=== PATIENT | female | born 1940 | race Caucasian/White ===

== ENCOUNTER → 2017-01-07 | Outpatient (CLI) | payer OTHER ==
[~2017-01-07] MED LIST: ACETAMINOPHEN PO; B-COMPLEX-VITA1 EACH SL; CALCIUM 500 +1 EAC2 PO; CEFDINIR300 M1 PO; COD LIVER OIL473 ML PO; ENFOLAST TABLE1 EACH PO; FISH OIL 1,001000 MG PO; FOLIC ACID1 MG PO; FOLIC ACID800 MCG DOB; HUMIRA20 MG/0.1; HYDROCODON-ACE1 EAC1 PO; METHOTREXATE2.5 MG PO; MULTI-DAY1 TAB PO; NAPROSYN500 MG PO; PRAVACHOL20 MG PO; PRAVASTATIN SOD40 MG PO; RENATABS WITH I1 TAB PO; STOOL SOFTENER100 M1 PO; VIT D PO; ZITHROMAX PO; [UNRECOGNIZED DRUG - OTHER]
--- NOTE | ~2017-01-07 | MY11 ---
[facility] A Service of [facility] RADIOLOGY TEXT RESULTS PATIENT: TIANNA COMBS LOCATION: [facility] : 42 UNIT #: [id number] AGE: [address]: Misha Mabry MD SEX: F ORDER DR: [id number] [facility] [address] [place], [place] [address] [id number] O MR#: [id number] Acc #: [id number] NAME: TIANNA COMBS : 1940 SEX: F STUDY DATE/TIME: 01/07/2017 10:19 UNIT: [facility] ROOM: STUDY DESCRIPTION: MY Mammogram Screening Dig Abdirizak Attending Physician: Misha Mabry Jr., M.D. Ordering Physician: Misha Mabry Jr., M.D. Primary Care Physician: Misha Mabry Jr., M.D. MEDICAL IMAGING REPORT This report is preliminary unless electronic signature is present EXAM Screening mammogram 01/07 INDICATIONS 76-year-old with no personal or family history of breast cancer. No current complaints. FINDINGS Routine digital screening views of both breasts were obtained. Study is reviewed with an FDA-approved CAD device. Comparison made with 16:15, 06/15/2013. FINDINGS Breast parenchyma shows scattered fibroglandular densities. No new masses or suspicious microcalcifications are seen. A few benign calcifications are again seen in both breast. IMPRESSION Benign mammogram. Routine screen 1 year recommended. Patients over the age of 40 are entered into a reminder system with target due date for the next mammogram. A result letter will also be sent to the patient. BIRADS: 2 - benign findings Dictated by... Rad Townsend Jr., M.D. THIS IS AN ELECTRONICALLY VERIFIED REPORT [facility] A Service [facility] RADIOLOGY TEXT RESULTS PATIENT: TIANNA COMBS LOCATION: [facility] : 42 UNIT #: [id number] AGE: [address]: Misha Mabry MD SEX: F ORDER DR: Rad Townsend Jr., M.D. at 01/08/2017 10:17 AM ELSY/gilma TD: 01/07/2017 13:29 JOB #: [id number] MEDICAL IMAGING REPORT Page 1 of 1 COPY
== END | disposition home or self-care (01) ==
LOC: CWCC 09:38
DX: Z12.31 Encounter for screening mammogram for malignant neoplasm of breast (principal)
CPT/HCPCS: G0202

== ENCOUNTER 2017-02-23 09:35 | Inpatient (IN) | payer OTHER ==
--- NOTE | ~2017-02-23 | DS ---
Unit #: [id number] #: [id number] Patient: TIANNA COMBS [id number] [address] [address] [id number] I MR#: [id number] NAME: TIANNA COMBS. ROOM: 325 Age: 76 Sex: F Admission Date: 02/23/2017 : 1940 Discharge Date: 02/25/2017 Attending Physician: Aneesh Burgos M.D. Primary Care Physician: Misha Mabry Jr., M.D. DISCHARGE SUMMARY PRIMARY DIAGNOSIS Right lower lobe pneumonia. SECONDARY DIAGNOSES 1. Sepsis. 2. Hypokalemia. 3. Anemia. 4. Thrombocytopenia, resolved at discharge. 5. Hypertension, controlled. 6. 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 HOSPITAL COURSE The patient was admitted to the hospital, started on IV Rocephin and Zithromax, as well as some potassium replacement. Ultrasound of the gallbladder was done to rule out gallbladder disease, as the patient had some right posterior thoracic pain that was worse with deep breathing. After evaluation, it appears this is secondary to her pneumonia. The patient had good clinical response and will continue on oral antibiotics for an additional 8 days. Her fevers resolved and overall clinically improving at the time of discharge. DISCHARGE DISPOSITION To home. DISCHARGE STATUS Stable. DISCHARGE ACTIVITY Ad clement. DISCHARGE DIET Low sodium diet due to history of hypertension. DISCHARGE FOLLOWUP Discharge followup is with her PCP in 2-10 days. DISCHARGE MEDICATIONS 1. Cefdinir 300 mg p.o. b.i.d. 2. Zithromax 500 mg p.o. daily for 5 days. 3. Tylenol 1,000 mg p.o. q.8 hours p.r.n. pain. 4. Methotrexate 2.5 mg p.o. every 7 days. 5. Cod liver oil 415 mg p.o. daily. Unit #: [id number] #: [id number] Patient: TIANNA COMBS 6. Pravastatin 40 mg p.o. daily. 7. Humira, resume home dose and home frequency 8. Folic acid 800 mcg p.o. daily. 9. Vitamin B complex 1 tab sublingual once daily. Dictated by... Aneesh Burgos M.D. WSB/db TD: 02/25/2017 15:48 JOB #: [id number] DISCHARGE SUMMARY Page 1 of 1 X Aneesh Burgos MD X DISCHARGE SUMMARY
--- NOTE | ~2017-02-23 | EKG ---
PATIENT: TIANNA COMBS UNIT #: [id number] Ventricular Rate: 84 BPM Atrial Rate: 84 BPM P-R Interval: 148 ms QRS Duration: 122 ms Q-T Interval: 376 ms QTC Calculation(Bezet): 444 ms P Pickens: 22 degrees Calculated R Pickens: 115 degrees Calculated T Pickens: -16 degrees Diagnosis Line: Sinus rhythm with Fusion complexes Diagnosis Line: Right axis deviation Diagnosis Line: Non-specific intra-ventricular conduction delay Diagnosis Line: ST and T wave abnormality, consider inferior Diagnosis Line: ischemia Diagnosis Line: Abnormal ECG Diagnosis Line: No previous ECGs available Diagnosis Line: Confirmed by GARIMA JEFF MD ([id number]) on Diagnosis Line: 02/24/2017 5:10:24 PM INTERPRETING MD: PENELOPE
--- NOTE | ~2017-02-23 | HP ---
Unit #: [id number] #: [id number] Patient: TIANNA COMBS [id number] [facility] [address]. [place], [place] [address] [id number] MR#: [id number] NAME: TIANNA COMBS ROOM: Age: 76 Sex: F Admission Date: 02/23/2017 : 1940 Attending Physician: Gary Tinajero D.O. Primary Care Physician: Misha Mabry Jr., M.D. HISTORY AND PHYSICAL CHIEF COMPLAINT Right upper quadrant pain. HISTORY OF PRESENT ILLNESS The patient is a 76-year-old female with a past medical history of hypertension and rheumatoid arthritis who presented to the emergency department from an urgent care center for evaluation of the above. The patient states that she has not been feeling well since February 20, 2017. She states that she has had pain in the right upper abdomen that she describes as "achy." It has been intermittent in nature. It is exacerbated by eating. There are no alleviating factors. She denies any similar pain. She has had fever as high as 101.7. She reports an occasionally productive cough. She denies any chest pain and no difficulty breathing. She has noticed that her urine is somewhat dark but otherwise denies any urinary symptoms. In the emergency department, initial temperature was 99.1 but did reach as high as 101.7, pulse 96, and oxygen saturation 98% on room air. CT of the chest, PE protocol, showed consolidation in the right upper lobe, as well as ground-glass opacity in the right lower lobe. She was given Rocephin and azithromycin in the emergency department, as well as a 500 mL normal saline bolus. She is being admitted to [facility] for evaluation and further treatment. PAST MEDICAL HISTORY 1. The patient denies any hospitalizations. 2. Rheumatoid arthritis followed by Dr. Alonso, maintained on Humira and methotrexate. 3. Hypertension. PAST SURGICAL HISTORY 1. Colonoscopy March 08, 2011, was normal. 2. Dilatation and curettage. 3. Tonsillectomy. SOCIAL HISTORY The patient lives with her . There is no tobacco or alcohol use. She is unemployed. FAMILY HISTORY Notable for her mother being alive and 97 years old. Her dad had dementia and is . Unit #: [id number] #: [id number] Patient: TIANNA COMBS ALLERGIES Macrodantin. HOME MEDICATIONS 1. Humira. 2. Methotrexate. 3. Pravastatin. 4. Multivitamin. Home medications will need to be reviewed and verified. REVIEW OF SYSTEMS A complete review of systems is negative except as indicated in the History of Present Illness. The patient reports vomiting but none within the past 24 hours. She denies any diarrhea or constipation. PHYSICAL EXAMINATION VITAL SIGNS: Temperature 99.1 but did reach 101.7 during the course of her evaluation in the emergency department, pulse 96, respirations 16, blood pressure 125/58, and oxygen saturation 98% on room air. GENERAL: Patient is a female who is awake, alert, and in no acute distress. HEENT: Head is atraumatic. Mucous membranes are moist. NECK: Supple. Trachea is midline. CARDIOVASCULAR: Regular rate and rhythm. LUNGS: Relatively clear to auscultation bilaterally with no increased work of breathing. ABDOMEN: Soft. She is tender to palpation in the right upper quadrant. Bowel sounds are present in all four quadrants. EXTREMITIES: Nontender with no pedal edema. NEUROLOGIC: Patient is awake and alert. She follows commands. PSYCHIATRIC: Mood and affect are normal. Patient is cooperative. SKIN: Skin of examined areas is warm and dry. DIAGNOSTIC STUDIES LABORATORY: Complete blood count is essentially normal. Comprehensive metabolic panel notable for a glucose of 122 and albumin is 3.3. Amylase and lipase are normal. Troponin is less than 0.05. Urinalysis notable for 1+ leukocyte esterase, 1+ protein, 1+ ketones, 2+ blood with 25-50 red blood cells and 5-10 white blood cells, and 1+ bacteria. D-dimer was 660. BNP 152. IMAGING: CT of the chest, PE protocol, shows no PE, but consolidation is noted within the right upper lobe. There is also ground-glass opacity in the right lower lobe. Gallbladder ultrasound was normal. CT of the abdomen and pelvis showed no acute abnormality. CARDIOLOGY: EKG shows sinus rhythm with fusion complex with a rate of 84 beats per minute. There is T wave inversion in leads V3 and V6. There is no old EKG for comparison. ASSESSMENT The patient is a 76-year-old female with: 1. Pneumonia, community acquired. The patient received Rocephin and azithromycin in the emergency department. 2. Sepsis. 3. Possible urinary tract infection. There are no urine cultures in [facility] for review. Unit #: [id number] #: [id number] Patient: TIANNA COMBS 4. Hypertension. 5. History of rheumatoid arthritis, maintained on Humira and methotrexate, followed by Dr. Alonso. PLAN 1. Admit to intermediate level. 2. Healthy heart diet. 3. Normal saline at 100 mL/hour. 4. Blood cultures x2. 5. Sputum culture and sensitivity. 6. Procalcitonin level. 7. Rocephin and azithromycin for community-acquired pneumonia pending further workup. 8. DuoNebs q.4 hours p.r.n. 9. Supplemental oxygen. 10. Sepsis protocol with stat lactic acid and repeat. 11. Urine culture and sensitivity on urine in the lab. 12. Serial cardiac enzymes. 13. P.r.n. Tylenol. 14. P.r.n. Zofran. 15. SCDs for DVT prophylaxis. 16. Repeat labs in the morning. 17. Additional workup and consultants based on above. 1. Dictated by Gilma Nuñez/ryan TD: 02/23/2017 17:49 JOB #: [id number] HISTORY AND PHYSICAL Page 1 of 1 X Yaritza López MD X HISTORY AND PHYSICAL
--- NOTE | ~2017-02-23 | CT4 ---
[facility] A Service of [facility] & [facility] RADIOLOGY TEXT RESULTS PATIENT: TIANNA COMBS LOCATION: [facility] 325- : 42 UNIT #: [id number] AGE: [address]: Aneesh Burgos MD SEX: F ORDER DR: [id number] [facility] [address]. [place], [place] [address] [id number] I MR#: [id number] Acc #: [id number] NAME: TIANNA COMBS. : 1940 SEX: F STUDY DATE/TIME: 02/23/2017 13:22 UNIT: [facility] ROOM: [facility] STUDY DESCRIPTION: CT Abd and Pelv Wo Cont Attending Physician: Yaritza López M.D. Ordering Physician: Arabella Lees P.A.-C. Primary Care Physician: Misha Mabry Jr., M.D. MEDICAL IMAGING REPORT This report is preliminary unless electronic signature is present EXAM CT abdomen and pelvis, noncontrast, 02/23/2017. HISTORY 76-year-old female in the ED complaining of 3-day history of right upper quadrant abdomen pain and right side chest pain. Gallbladder ultrasound examination earlier today was negative. TECHNIQUE CT examination of the abdomen and pelvis was performed without oral or IV contrast, as ordered. This CT exam was performed with one or more of the following radiation dose reduction techniques: Automatic exposure control, adjustment of mA and/or kV according to patient size, and iterative reconstruction. FINDINGS Abdomen findings: The liver, pancreas and spleen are normal in size and appearance. Nondistended gallbladder. No bile duct dilatation. Both kidneys are negative with no visible nephrolithiasis and no evidence of urinary obstruction. Normal-caliber abdominal aorta. Mild scattered diverticulosis in the left lower colon. Small bowel and colon are otherwise normal in caliber and appearance, as imaged. The appendix is within normal limits. The stomach is nondistended. Pelvis findings: Uterus, ovaries, bladder and rectum are within normal limits. CT chest examination is reported separately. IMPRESSION 1. No acute abnormality within the abdomen or pelvis. [facility] A Service of [facility] & [facility] RADIOLOGY TEXT RESULTS PATIENT: TIANNA COMBS LOCATION: [facility] 325-01 : 42 UNIT #: [id number] AGE: [address]: Aneesh Burgos MD SEX: F ORDER DR: 2. No visible nephrolithiasis or evidence of urinary obstruction. Negative appendix. Dictated by... Srinath Parish M.D. THIS IS AN ELECTRONICALLY VERIFIED REPORT Srinath Parish M.D. at 02/25/2017 8:50 AM SALMA/lisa TD: 02/24/2017 09:22 JOB #: [id number] MEDICAL IMAGING REPORT Page 1 of 1 COPY
--- NOTE | ~2017-02-23 | US67 ---
[facility] A Service of [facility] & [facility] RADIOLOGY TEXT RESULTS PATIENT: TIANNA COMBS LOCATION: [facility] 325- : 42 UNIT #: [id number] AGE: [address]: Aneesh Burgos MD SEX: F ORDER DR: [id number] [facility] [address] [place], [place] [address] [id number] I MR#: [id number] Acc #: [id number] NAME: TIANNA COMBS : 1940 SEX: F STUDY DATE/TIME: 02/23/2017 10:58 [facility]: [facility] STUDY DESCRIPTION: US Gallbladder Attending Physician: Yaritza López M.D. Ordering Physician: Arabella Lees P.A.-C. Primary Care Physician: Misha Mabry Jr., M.D. MEDICAL IMAGING REPORT This report is preliminary unless electronic signature is present EXAM Ultrasound of the gallbladder. HISTORY Abdominal pain right upper quadrant for 4 days. No other medical problems per patient. FINDINGS Real-time ultrasonography of the right upper quadrant performed with 2-D allan-scale imaging and limited color-flow Doppler technique. No previous. The visualized pancreas is within normal limits. Tail is obscured by overlying bowel gas. The liver is essentially normal in size and echotexture. The main portal vein is patent with hepatopetal flow. The intrahepatic vena cava is patent. There is no gallstone, gallbladder wall thickening or pericholecystic fluid. The common duct measures 5-6 mm which is within the range of normal in this patient's age group. No intrahepatic biliary ductal dilatation. The right kidney measures about 9.5 x 4 x 4.8 cm dimension with cortical thickness 1.1 cm. No hydronephrosis or suspicious mass or shadowing calculus seen on ultrasound. IMPRESSION Essentially normal right upper quadrant ultrasound for age group. Tail of the pancreas not seen due to overlying bowel gas. Dictated by... Chanda Horton M.D. THIS IS AN ELECTRONICALLY VERIFIED REPORT Chanda Horton M.D. at 02/25/2017 8:40 AM SAC/bd [facility] [email or web address] A Service of [facility] & [facility] RADIOLOGY TEXT RESULTS PATIENT: TIANNA COMBS LOCATION: [facility] 325-01 : 42 UNIT #: [id number] AGE: [address]: Aneesh Burgos MD SEX: F ORDER DR: TD: 02/24/2017 08:48 JOB #: [id number] MEDICAL IMAGING REPORT Page 1 of 1 COPY
--- NOTE | ~2017-02-23 | CT16 ---
[facility] A Service of [facility] & [facility] RADIOLOGY TEXT RESULTS PATIENT: TIANNA COMBS LOCATION: [facility] 325-01 : 42 UNIT #: [id number] AGE: [address]: Aneesh Burgos MD SEX: F ORDER DR: [id number] [facility] [address] [place], [place] [address] [id number] I MR#: [id number] Acc #: [id number] NAME: TIANNA COMBS. : 1940 SEX: F STUDY DATE/TIME: 02/23/2017 13:50 UNIT: A U ROOM: [facility] STUDY DESCRIPTION: CT Angio Chest for PE Attending Physician: Yaritza López M.D. Ordering Physician: Gary Tinajero D.O. Primary Care Physician: Misha Mabry Jr., M.D. MEDICAL IMAGING REPORT This report is preliminary unless electronic signature is present EXAM CT chest with contrast, pulmonary arteriography protocol, 02/23/2017. HISTORY 76-year-old female in the ED complaining of a 3-day history of right upper quadrant abdomen pain and right side chest pain. TECHNIQUE CT examination of the chest was performed with IV contrast using pulmonary arteriography protocol. CTA images of the pulmonary arteries were reformatted in multiple planes. This CT exam was performed with one or more of the following radiation dose reduction techniques: automatic exposure control, adjustment of mA and/or kV according to patient size, and iterative reconstruction. FINDINGS No pulmonary embolism is demonstrated. Thoracic aorta is normal in caliber. Heart size is normal. Trace pericardial effusion. Focal airspace consolidation is present in the posterior segment right upper lobe. Correlate for clinical and laboratory evidence of infectious pneumonia. There is also mild ground-glass infiltrate and diffuse increase in interstitial markings in the right lower lobe with right posterior lung base atelectasis and a tiny right pleural effusion. Central right lower lobe bronchi are thickened. The left lung is clear. Enlarged subcarinal lymph node measuring up to 2.1 cm in thickness is nonspecific but may be reactive. No additional adenopathy elsewhere within the chest. No rib fracture or other chest wall lesion is seen. Abdomen/pelvis CT to follow. IMPRESSION 1. No evidence of pulmonary embolism. Normal-caliber thoracic aorta. STS. [facility] A Service of [facility] RADIOLOGY TEXT RESULTS PATIENT: TIANNA COMBS LOCATION: [facility] 325-01 : 42 UNIT #: [id number] AGE: [address]: Aneesh Burgos MD SEX: F ORDER DR: 2. Airspace consolidation within a portion of the posterior segment right upper lobe along with right lower lobe interstitial and ground-glass infiltrate and a tiny right pleural effusion. Correlate for clinical and laboratory evidence of infectious pneumonia. The left lung is clear. 3. Mildly large subcarinal lymph node, nonspecific, but most likely reactive in the current setting. Dictated by... Srinath Parish M.D. THIS IS AN ELECTRONICALLY VERIFIED REPORT Srinath Parish M.D. at 02/25/2017 8:50 AM AMISHAW/nani TD: 02/24/2017 09:19 JOB #: [id number] MEDICAL IMAGING REPORT Page 1 of 1 COPY
[~2017-02-23 09:35] MED LIST changes: -ACETAMINOPHEN PO; -B-COMPLEX-VITA1 EACH SL; -CEFDINIR300 M1 PO; -COD LIVER OIL473 ML PO; -FOLIC ACID800 MCG DOB; -HUMIRA20 MG/0.1; -NAPROSYN500 MG PO; -PRAVASTATIN SOD40 MG PO; -ZITHROMAX PO
[2017-02-23 10:44] LABS: BASOPHIL% 0.3 % (0-2.5); EOSINOPHIL% 0.1 % (0.0-7.0); HEMATOCRIT 36.7 % (35.0-45.0); HEMOGLOBIN 12.1 gm/dL (12.0-16.0); LYMPHOCYTE# 0.8 X10e3 (1.0-3.5); LYMPHOCYTE% 8.7 % (17.0-45.0); MEAN CELL VOLUME 92.1 FL (83-96); MEAN CORPUSCULAR HEMOGLOBIN 30.2 PG (28-34); MEAN CORPUSCULAR HGB CONC 32.8 g/dL (30-36); MEAN PLATELET VOLUME 9.1 FL (6.5-11.5); MONOCYTE# 0.7 X10e3 (0-1.0); MONOCYTE% 7.3 % (3.0-12.0); NEUTROPHIL# 7.8 X10e3 (1.5-7.1); NEUTROPHIL% 83.6 % (40-75); PLATELET COUNT 145 X10e3 (140-420); RED BLOOD COUNT 3.99 X10e (3.90-5.30); RED CELL DISTRIBUTION WIDTH 15.2 % (11.0-15.5); WHITE BLOOD COUNT 9.3 X10e3 (4.0-10.5)
[2017-02-23 10:50] LABS: DIFF IND NO
[2017-02-23 11:09] LABS: ALBUMIN SERUM 3.3 g/dL (3.5-5.0); BILIRUBIN, DIRECT 0.2 mg/dL (0.0-0.2); BILIRUBIN,INDIRECT 0.8 mg/dL (0.0-0.9); BUN/CREATININE RATIO 14.44; CALCIUM SERUM 8.6 mg/dL (8.4-10.2); CREATININE SERUM 0.9 mg/dL (0.6-1.4); POTASSIUM 4.4 mmol/L (3.5-5.1); PROTEIN TOTAL SERUM 6.9 g/dL (6.0-8.3)
[2017-02-23 11:13] LABS: POC - CKMB <1.0 ng/mL (0.0-7.9); POC - TROPONIN <0.05 ng/mL (<=0.05)
[2017-02-23 12:08] LABS: URINE SOURCE CLEAN CATCH
[2017-02-23 12:16] LABS: URINE APPEARANCE CLEAR; URINE BLOOD 2+ (NEG); URINE COLOR DK YELLOW; URINE GLUCOSE NEG (NEG); URINE KETONE 1+ (NEG); URINE LEUKOCYTE ESTERASE 1+ (NEG); URINE NITRATE NEG (NEG); URINE PH 6.5 (5-8); URINE PROTEIN 2+ (NEG); URINE SPECIFIC GRAVITY 1.031 (1.003-1.035)
[2017-02-23 12:18] LABS: CULTURE INDICATED? YES; URBCS1 AUWI 25-50 /[HPF] (0-2); URINE SQUAMOUS EPITHELIAL CELL MOD /[HPF]
[2017-02-23 12:29] LABS: URINE BILIRUBIN NEG (NEG)
[2017-02-23 12:30] LABS: URINE BACTERIA AUWI 1+ (NEGATIVE)
[2017-02-23 13:59] LABS: POC - CKMB <1.0 ng/mL (0.0-7.9); POC - TROPONIN <0.05 ng/mL (<=0.05)
[2017-02-23 19:53] LABS: CK TOTAL 29 IU/L (26-140)
[2017-02-23] MEDS ORDERED: PRAVASTATIN SOD40 MG PO (20:04)
[2017-02-23] MEDS ORDERED: METHOTREXATE2.5 MG PO (20:05)
[2017-02-23] MEDS ORDERED: FOLIC ACID800 MCG DOB (20:05)
[2017-02-23] MEDS ORDERED: COD LIVER OIL473 ML PO (20:05)
[2017-02-23] MEDS ORDERED: NAPROSYN500 MG PO (20:06)
[2017-02-23] MEDS ORDERED: B-COMPLEX-VITA1 EACH SL (20:07)
[2017-02-23] MEDS ORDERED: HUMIRA20 MG/0.1 (20:08)
[2017-02-23] MEDS ORDERED: ACETAMINOPHEN PO (21:44)
[2017-02-24 02:08] LABS: HEMATOCRIT 34.1 % (35.0-45.0); HEMOGLOBIN 11.1 gm/dL (12.0-16.0); MEAN CELL VOLUME 92.4 FL (83-96); MEAN CORPUSCULAR HEMOGLOBIN 30.1 PG (28-34); MEAN CORPUSCULAR HGB CONC 32.6 g/dL (30-36); MEAN PLATELET VOLUME 9.6 FL (6.5-11.5); RED BLOOD COUNT 3.69 X10e (3.90-5.30); WHITE BLOOD COUNT 8.4 X10e3 (4.0-10.5)
[2017-02-24 02:35] LABS: CK TOTAL 36 IU/L (26-140)
[2017-02-24 02:58] LABS: BUN/CREATININE RATIO 15.71; CALCIUM SERUM 7.6 mg/dL (8.4-10.2); CREATININE SERUM 0.7 mg/dL (0.6-1.4); GLOM FILT RATE Estimated 85.4 mL/min (>60); POTASSIUM 3.1 mmol/L (3.5-5.1)
[2017-02-25 08:53] LABS: HEMATOCRIT 34.2 % (35.0-45.0); HEMOGLOBIN 11.2 gm/dL (12.0-16.0); MEAN CELL VOLUME 91.8 FL (83-96); MEAN CORPUSCULAR HEMOGLOBIN 30.2 PG (28-34); MEAN CORPUSCULAR HGB CONC 32.9 g/dL (30-36); MEAN PLATELET VOLUME 8.6 FL (6.5-11.5); RED BLOOD COUNT 3.72 X10e (3.90-5.30); RED CELL DISTRIBUTION WIDTH 15.4 % (11.0-15.5); WHITE BLOOD COUNT 8.1 X10e3 (4.0-10.5)
[2017-02-25 09:23] LABS: BUN/CREATININE RATIO 11.66; CALCIUM SERUM 8.1 mg/dL (8.4-10.2); CREATININE SERUM 0.6 mg/dL (0.6-1.4); GLOM FILT RATE Estimated 89.8 mL/min (>60); MAGNESIUM 2.1 mg/dL (1.6-3.0); POTASSIUM 3.8 mmol/L (3.5-5.1)
[2017-02-25] MEDS ORDERED: CEFDINIR300 M1 PO (10:07)
[2017-02-25] MEDS ORDERED: ZITHROMAX PO (10:07)
== END 2017-02-25 12:40 | disposition home or self-care (01) | DRG 871 ==
LOC: CED 09:35 → CEDOF 16:45 → C3A PCU 21:13
PROVIDERS: Emergency Medicine; Family Medicine; Internal Medicine; Physician Assistant
PROC: B32TYZZ Computerized Tomography (CT Scan) of Left Pulmonary Artery using Other Contrast (ICD-10-PCS; principal; 2017-02-23)
PROC: B32SYZZ Computerized Tomography (CT Scan) of Right Pulmonary Artery using Other Contrast (ICD-10-PCS; 2017-02-23)
DX: A41.9 Sepsis, unspecified organism (principal); J18.9 Pneumonia, unspecified organism; M06.9 Rheumatoid arthritis, unspecified; N39.0 Urinary tract infection, site not specified; D64.9 Anemia, unspecified; D69.6 Thrombocytopenia, unspecified; R10.11 Right upper quadrant pain; I10 Essential (primary) hypertension
CPT/HCPCS: 36415; 71275; 74176; 76705; 80048; 80076; 81003; 82150; 82308; 82550; 82553; 83605; 83690; 83735; 83880; 84132; 84484; 85025; 85027; 85379; 87040; 87086; 93005; 96365; 96367; 99284; J0456; J0696; J2270; J2405; Q9967